=== PATIENT | female | born 1945 | race Caucasian/White ===

== ENCOUNTER 2018-03-13 13:09 | Emergency (ER) | payer MEDICARE, OTHER ==
[~2018-03-13] VITALS: Ht 162.6 cm; Wt 78.9 kg
[~2018-03-13 13:09] MED LIST: AMLO5TAB4 PO; ASPI-817 PO; GLIM2TAB PO; MECL-77 PO; METF500T24 PO; OMEP20CA16 PO; PRAV10TA43 PO
[2018-03-13 13:16] VITALS: BP 138/66; PULSE 88; RESP 18; Ht 162.6 cm; Wt 78.9 kg
[2018-03-13] MEDS ORDERED: ONDANSETRON (ODT) 4 MG TAB ODT STA (14:07)
--- NOTE | 2018-03-13 14:08 | ERD ---
ER Documentation Chief Complaint Chief Complaint sore throat x3 days HPI 72-year-old female with history of diabetes, presents to the emergency department, complaining of worsening of sore throat, associated with subjective fever and general malaise. Patient is also complaining of cough but denies chest pain, no shortness of breath. She has been taking [id number] medication without improvement of the symptoms. ROS All systems reviewed and are negative except as per history of present illness. Medications Home Meds Active Scripts Azithromycin* (Zithromax*) 250 Mg Tablet, 250 MG PO .ZPACK DIRECTED, #6 TAB TAKE 500 MG (2 TABS) THE FIRST DAY THEN 250 MG (1 TAB) DAYS 2-5 Prov:TERE BRANNON MD 03/13/18 Ondansetron Hcl* (Zofran*) 4 Mg Tablet, 4 MG PO TID for NAUSEA AND/OR VOMITING, #12 TAB Prov:TERE BRANNON MD 03/13/18 Ranitidine Hcl* (Zantac*) 150 Mg Tablet, 150 MG PO BID PRN for EPIGASTRIC PAIN, #10 TAB Prov:TERE BRANNON MD 03/13/18 Meclizine Hcl* (Meclizine Hcl*) 25 Mg Tablet, 25 MG PO TID, #10 TAB Prov:FOREIGN MURGUIA MD 02/24/16 Reported Medications Amlodipine Besylate* (Norvasc*) 5 Mg Tablet, 5 MG PO DAILY, TAB 02/24/16 Aspirin* (Aspirin* EC) 81 Mg Tablet.dr, 81 MG PO DAILY, TAB 02/24/16 Pravastatin Sodium* (Pravastatin Sodium*) 10 Mg Tablet, 10 MG PO HS, TAB 02/24/16 Omeprazole* (Omeprazole*) 20 Mg Capsule.dr, 20 MG PO DAILY, #30 CAP 02/24/16 Glimepiride* (Glimepiride*) 2 Mg Tablet, 2 MG PO WITH BREAKFAST DINNE, TAB 02/24/16 Metformin Hcl* (Metformin Hcl*) 500 Mg Tablet, 725 MG PO WITH BREAKFAST DINNE, #60 TAB 02/24/16 Allergies Allergies: Coded Allergies: codeine (Verified Allergy, Mild, 02/24/16) penicillin G (Verified Allergy, Mild, RASH, 02/24/16) PMhx/Soc History of Surgery: No Anesthesia Reaction: No Hx Neurological Disorder: No Hx Respiratory Disorders: No Hx Cardiac Disorders: Yes (HTN, CHOLESTEROL) Hx Psychiatric Problems: No Hx Miscellaneous Medical Probl: No Hx Alcohol Use: No Hx Substance Use: No Hx Tobacco Use: No Smoking Status: Never smoker FmHx Family History: No diabetes, No coronary disease Physical Exam Vitals Vital Signs Date Temp Pulse Resp B/P (MAP) Pulse Ox O2 O2 Flow FiO2 Time Delivery Rate 03/13/18 97.1 88 18 138/66 95 13:16 (90) Physical Exam Const: No acute distress Head: Atraumatic Eyes: Normal Conjunctiva ENT: Edematous oropharynx, normal External Ears, Nose and Mouth. Neck: Full range of motion. No meningismus. Resp: Diffuse rhonchi to auscultation bilaterally Cardio: Regular rate and rhythm, no murmurs Abd: Soft, non tender, non distended. Normal bowel sounds Skin: No petechiae or rashes Back: No midline or flank tenderness Ext: No cyanosis, or edema Neur: Awake and alert Psych: Normal Mood and Affect Result Diagram: 03/13/18 1417 03/13/18 1417 Results 24 hrs Laboratory Tests Test 03/13/18 14:16 03/13/18 14:17 Bedside Urine pH (LAB) 5.5 Bedside Urine Protein (LAB) Negative Bedside Urine Glucose (UA) Negative Bedside Urine Ketones (LAB) Trace Bedside Urine Blood Negative Bedside Urine Nitrite (LAB) Negative Bedside Urine Leukocyte Esterase (L Negative White Blood Count 7.9 10^3/ul Red Blood Count 4.35 10^6/ul Hemoglobin 12.3 g/dl Hematocrit 36.9 % Mean Corpuscular Volume 84.8 fl Mean Corpuscular Hemoglobin 28.3 pg Mean Corpuscular Hemoglobin Concent 33.3 g/dl Red Cell Distribution Width 12.1 % Platelet Count 234 10^3/UL Mean Platelet Volume 10.5 fl Immature Granulocytes % 0.500 % Neutrophils % 67.6 % Lymphocytes % 20.2 % Monocytes % 8.5 % Eosinophils % 2.8 % Basophils % 0.4 % Nucleated Red Blood Cells % 0.0 /100WBC Immature Granulocytes # 0.040 10^3/ul Neutrophils # 5.3 10^3/ul Lymphocytes # 1.6 10^3/ul Monocytes # 0.7 10^3/ul Eosinophils # 0.2 10^3/ul Basophils # 0.0 10^3/ul Nucleated Red Blood Cells # 0.0 10^3/ul Sodium Level 143 mmol/L Potassium Level 4.1 mmol/L Chloride Level 103 mmol/L Carbon Dioxide Level 27 mmol/L Anion Gap 13 Blood Urea Nitrogen 17 mg/dl Creatinine 0.58 mg/dl Est Glomerular Filtrat Rate mL/min mL/min Glucose Level 167 mg/dl Calcium Level 9.9 mg/dl Total Bilirubin 0.1 mg/dl Direct Bilirubin 0.00 mg/dl Indirect Bilirubin 0.1 mg/dl Aspartate Amino Transf (AST/SGOT) 23 IU/L Alanine Aminotransferase (ALT/SGPT) 24 IU/L Alkaline Phosphatase 96 IU/L Total Protein 7.4 g/dl Albumin 4.4 g/dl Globulin 3.00 g/dl Albumin/Globulin Ratio 1.46 Lipase 176 U/L Current Medications Medications Dose Sig/Jone Start Time Status Last (Trade) Ordered Route PRN Stop Time Admin Dose Reason Admin Ondansetron 8 mg ONCE STAT 03/13/18 DC 03/13/18 HCl (Zofran ODT 14:07 14:18 Odt) 03/13/18 14:12 Procedures/MDM Vital signs stable, no respiratory distress. Differential diagnosis include but not limited to: Respiratory infection bacterial/viral/fungal. Croup, bronchiolitis, pneumonitis, allergies, GERD. Less likely foreign body aspiration, cardiac related. Physical examination and clinical presentation consistent most likely with viral infection with early superimposed bacterial infection. During the ED course the patient remained stable, no new complaints. Treatment options and clinical impression discussed with mother who agrees with management. The patient is stable to be treated outpatient and will be discharged home with a Rx for azithromycin. Some side effects of prescribed medications (headache, rash, nausea, vomiting, diarrhea, interactions with other medications) were reviewed. The patient needs to follow up with the primary care provider in the next 48h. If symptoms persist, worsen or new symptoms develop, then patient should return to the ED immediately. Disclaimer: Inadvertent spelling and grammatical errors are likely due to E HR/dictation software use and do not reflect on the overall quality of patient care. Also, please note that the electronic time recorded on this note does not necessarily reflect the actual time of the patient encounter. Departure Diagnosis: Primary Impression: Cough Additional Impression: Superimposed infection Condition: Stable Additional Instructions: Muchas reji por [facility] para salomon servicio. Esperamos que en salomon visita a la hazel de emergencia salomon problema medico haya sido solucionado y que se sienta mucho mejor. Para estar seguros que salomon mejoria sigue en proceso, le pedimos el favor de hacer lois pardeep de seguimiento medico con salomon doctor primario en los proximos 2-4 iqbal. Lleve con usted estos documentos y las medicinas recetadas. Si ngozi sintomas empeoran, NO SE ESPERE, por favor regrese a hazel de emergencia INMEDIATAMENTE. En padma que usted no tenga un mdico de atencin primaria: Llame al mdico o clnica comunitaria de referencia que aparece abajo ankur las horas de consultorio para hacer lois pardeep para que le vean. CLINICAS: [facility] [phone] [facility] [phone] [facility] [phone] [facility] [phone] [place] [id number] [phone] [facility]. [phone] MD Mar 13, 2018 14:08
[2018-03-13] MEDS ORDERED: ONDA4TAB8 PO (14:37)
[2018-03-13] MEDS ORDERED: RANI150T35 PO (14:37)
[2018-03-13] MEDS ORDERED: AZIT250T PO (14:43)
== END 2018-03-13 14:49 | disposition home or self-care (01) ==
LOC: FTE 13:09
DX: A49.9 Bacterial infection, unspecified (principal); I10 Essential (primary) hypertension; E11.9 Type 2 diabetes mellitus without complications; Z79.82 Long term (current) use of aspirin; Z79.84 Long term (current) use of oral hypoglycemic drugs
CPT/HCPCS: 80053; 81003; 83690; 85025; 99283